=== PATIENT | male | born 1995 | race Caucasian/White ===

== ENCOUNTER 2017-11-20 21:06 | Emergency (ER) | payer OTHER ==
[~2017-11-20] VITALS: Ht 190.5 cm; Wt 108.9 kg
[2017-11-20 22:51] LABS: BASO % 0.3 % (0.0-1.0); EOS % 0.2 % (1.0-4.0); HEMATOCRIT 38.3 % (42.0-52.0); HEMOGLOBIN 13.3 g/dl (14.0-18.0); LYMPH # 1.7 10*3/uL (1.3-4.4); LYMPH % 11.6 % (27.0-41.0); MEAN CELL VOLUME 87.4 fl (80.0-94.0); MEAN CORPUSCULAR HGB 30.4 pg (27.0-31.0); MEAN CORPUSCULAR HGB CONC 34.7 g/dl (33.0-37.0); MEAN PLATELET VOLUME 10.7 fl (9.6-12.3); MONO % 6.4 % (3.0-9.0); NEUT # 12.1 10*3/uL (2.3-7.9); PLATELET COUNT AUTOMATED 232 10*3/uL (130-400); RED BLOOD COUNT 4.38 10*6/uL (4.50-5.90); RED CELL DISTRI WIDTH 12.6 % (0-14.5); WHITE BLOOD COUNT 14.9 10*3/uL (4.8-10.8)
[2017-11-20 23:06] LABS: ALBUMIN 4.2 gm/dl (3.1-4.5); ALKALINE PHOSPHATASE 84 U/L (45-117); BUN 19 mg/dl (7-24); CHLORIDE 111 mmol/L (98-107); CREATININE 0.93 mg/dL (0.70-1.30); POTASSIUM 3.3 mmol/L (3.5-5.1); SGOT/AST 20 IU/L (3-35); SGPT/ALT 27 U/L (12-78); SODIUM 143 mmol/L (136-145); TOTAL PROTEIN 7.1 gm/dL (6.4-8.2)
[2017-11-21] MEDS ORDERED: Motrin,Rufen800 MG PO (00:35)
[2017-11-21] MEDS ORDERED: ULTRAM50 MG PO (00:36)
[2017-11-21 01:17] VITALS: BP 148/81
== END 2017-11-21 01:16 | disposition home or self-care (01) ==
LOC: ED 21:06
PROVIDERS: Emergency Medicine Emergency Medical Services
DX: S43.084A Other dislocation of right shoulder joint, initial encounter (principal); W19.XXXA Unspecified fall, initial encounter; Y93.89 Activity, other specified; Y92.69 Other specified industrial and construction area as the place of occurrence of the external cause; Y99.9 Unspecified external cause status

== ENCOUNTER 2025-02-09 10:35 | Emergency (ER) | payer SELFPAY ==
[~2025-02-09] VITALS: Ht 190.5 cm; Wt 68.0 kg
[~2025-02-09 10:35] MED LIST: Motrin,Rufen800 MG PO; ULTRAM50 MG PO
[2025-02-09 10:45] VITALS: BP 117/89
[2025-02-09] MEDS ORDERED: [UNRECOGNIZED DRUG - OTHER] T (11:40)
[2025-02-09] MEDS ORDERED: KENALOG 0.1%80 GM T (11:40)
[2025-02-09] MEDS ORDERED: ANT T (11:40)
[2025-02-09] MEDS ORDERED: [UNRECOGNIZED DRUG - REMARK] T (11:40)
[2025-02-09] MEDS ORDERED: Tdap Vaccine 0.5 ML SYR (Adult Vaccine) IM ONE (11:45)
== END 2025-02-09 12:09 | disposition home or self-care (01) ==
LOC: ED 10:35
DX: T23.102A Burn of first degree of left hand, unspecified site, initial encounter (principal); L25.9 Unspecified contact dermatitis, unspecified cause; X08.8XXA Exposure to other specified smoke, fire and flames, initial encounter; Y93.89 Activity, other specified; Y92.89 Other specified places as the place of occurrence of the external cause; Y99.8 Other external cause status